=== PATIENT | male | born 1980 | race Hispanic/Latino ===

== ENCOUNTER 2017-08-15 21:42 | Emergency (ER) | payer SELFPAY ==
[2017-08-15] MEDS ORDERED: Adacel (T-DAP) 0.5 ML VIAL ONE (21:51)
== END 2017-08-15 22:13 | disposition home or self-care (01) ==
LOC: SCSER 21:42
DX: L03.113 Cellulitis of right upper limb (principal); F17.210 Nicotine dependence, cigarettes, uncomplicated; W57.XXXA Bitten or stung by nonvenomous insect and other nonvenomous arthropods, initial encounter
CPT/HCPCS: 90471; 90715